=== PATIENT | male | born 1975 | race Caucasian/White ===

== ENCOUNTER 2021-04-19 12:58 | Emergency (ER) | payer BC, SELFPAY ==
[2021-04-19 13:23] VITALS: BP 125/85; PULSE 93; RESP 14; TEMP 36.7; O2SAT 99; BMI 28.2
--- NOTE | 2021-04-19 14:08 | HMH.EDUTC ---
[facility] [place] Dis[place] Clinical Impression: Fever blister Disposition: Home, Self-Care Condition on Discharge: Good Instructions: Cold Sores, DI for Cold Sores Additional Instructions: Use the medication as directed. Take tylenol or ibuprofen for pain If your insurance will not pay for the zovirax ointment then just get the oral medication. The oral medcation will work the best anyway. There will be refills on the oral medication, when you start to feel an out break start the next time, the sooner you start the medication the better it will work. Follow up with your primary care doctor. GO TO THE ER FOR ANY WORSENING SYMPTOMS OR CONCERNS Prescriptions: Acyclovir 400 mg PO TID 10 Days #30 tab Transmission Status: Received by [facility] #[id number] Acyclovir [Zovirax 5% ointment 5gm] 1 applicatio TP 5XDAY #5 gm Transmission Status: Received by [facility] #[id number] Referrals: Provider,Referral, [Primary Care Provider] - Time of Disposition: 14:18 Medical Decision Making - Medical Records Medical records reviewed: No: I reviewed the patient's medical records. - Baldev Inquiry Pt receiving controlled substance: No Vital Signs: 04/19/21 13:23 04/19/21 14:20 Temperature 98.1 F 98.1 F Temperature Source Oral Pulse Rate 93 H Pulse Rate [Left] 93 H Respiratory Rate 14 14 Blood Pressure 125/85 Blood Pressure [Right Arm] 125/85 Blood Pressure Mean [Right Arm] 98 02 Sat by Pulse Oximetry 99 [facility] [place] HPI - General Stated complaint: oral blisters Time Seen by Provider: 04/19/21 14:08 Mode of Arrival: Ambulatory Source of Information: Patient Limitations: No Limitations Description of Symptoms (Recalled from Triage Doc. by RN): pt appears to have fever blisters around his mouth. HEENT Symptoms (Recalled from RN notes): Yes (fever blisters) Resp Symptoms (Recalled from RN notes): No Skin Symptoms (Recalled from RN notes): No MS Symptoms (Recalled from RN notes): No Functional Status (Recalled from RN notes): na - History of Present Illness Provider Complaint: He states that he has a history of getting fever blisters. For the past 1 week he has had worse than his normal fever blister symptoms. He usually only gets one fever blister every so often, but over the past week he has had 4 fever blisters to break out. - Related Data Previous Rx's Medication Instructions Recorded Acyclovir 400 mg PO TID 10 Days #30 tab 04/19/21 Acyclovir [Zovirax 5% ointment 5gm] 1 applicatio TP 5XDAY #5 gm 04/19/21 - Worker's Comp Is this a Worker's Comp case?: No H History - Hepatitis A Screen Drug use history?: No High risk sexual behaviors?: No History of sexually transmitted infection?: No Currently employed?: No Childcare worker?: No Do you have indoor plumbing?: Yes Do you have electricity?: Yes Attestation statement:: This patient has been screened for Hepatitis A risk factors. ROS Obtained: Yes All systems reviewed & no additional complaints - Constitutional Constitutional: Denies chills, Denies fever(s) - Eyes Eyes: Denies eye discharge - ENT Ears, Nose, Mouth, and Throat: Denies dizziness, Denies otalgia, Denies sore throat - Cardiovascular Cardiovascular: Denies chest pain - Respiratory Respiratory: Denies chest congestion, Denies cough, Denies dyspnea, Denies stridor, Denies wheezing Physical Exam - General General appearance: alert, in no apparent distress - Head Head exam: atraumatic, normocephalic, normal inspection - Eye Eye exam: Present: normal appearance, PERRL, EOMI - ENT ENT exam: Present: mucous membranes moist, TM's normal bilaterally, normal external ear exam - Expanded ENT Exam Nasal speculum exam: Bilateral: normal Mouth exam: Present: other (multiple blisters and crusted lesions on his lips) Teeth exam: Present: normal inspection Throat exam: Present: normal inspection - Neck Neck exam: Present: normal inspection, full
[2021-04-19 14:20] VITALS: BP 125/85; PULSE 93; RESP 14; TEMP 36.7
== END 2021-04-19 14:23 | disposition home or self-care (01) ==
PROVIDERS: Emergency Provider Nurse Practitioner Family
DX: B00.1 Herpesviral vesicular dermatitis (principal)
CPT/HCPCS: 99202; G0463

== ENCOUNTER 2021-04-28 10:38 | Emergency (ER) | payer BC, SELFPAY ==
[2021-04-28 11:54] VITALS: BP 110/80; PULSE 114; RESP 16; TEMP 36.6; O2SAT 99; BMI 27.4
--- NOTE | 2021-04-28 12:43 | HMH.EDUTC ---
[facility] [place] Clinical Impression: Facial numbness Altered mental status Qualifiers: Altered mental status type: unspecified Qualified Code(s): R41.82 - Altered mental status, unspecified Hyperlipidemia Qualifiers: Hyperlipidemia type: unspecified Qualified Code(s): E78.5 - Hyperlipidemia, unspecified Disposition: Still a Patient Condition on Discharge: Fair Referrals: Provider,Referral, [Primary Care Provider] - Time of Disposition: 12:51 Medical Decision Making - Medical Records Medical records reviewed: No: I reviewed the patient's medical records. - Baldev Inquiry Pt receiving controlled substance: No Vital Signs: 04/28/21 11:54 Temperature 98 F Temperature Source Oral Pulse Rate [Left] 114 H Respiratory Rate 16 Blood Pressure [Right Arm] 110/80 Blood Pressure Mean [Right Arm] 90 02 Sat by Pulse Oximetry 99 Medical Decision Narrative: He was transferred to the er due to his symptoms of dizziness, facial numbness and the period of confusion. [facility] [place] H[place] - General Stated complaint: face numb and right arm Time Seen by Provider: 04/28/21 12:43 Mode of Arrival: Ambulatory Source of Information: Patient Limitations: No Limitations Description of Symptoms (Recalled from Triage Doc. by RN): pt c/o R hand and R sided facial numbness and tingling. pt started taking a cholesterol med about three mo. ago. HEENT Symptoms (Recalled from RN notes): No Resp Symptoms (Recalled from RN notes): No Skin Symptoms (Recalled from RN notes): No MS Symptoms (Recalled from RN notes): No Functional Status (Recalled from RN notes): wnl - History of Present Illness Provider Complaint: He states that for the past 2 days he has had some concerning symptoms. Yesterday he was dizzy at times and almost fell several times. Today while at work his symptoms returned. At work, he also had a period of time that he was confused and could not perform his job. He states that his job is simple and he never has had symptoms like that. He has a history of having very elevated cholesterol. He was on some medication for his cholesterol, but she stopped it. He has a strong family history of very elevated cholesterol also. - Related Data Previous Rx's Medication Instructions Recorded Acyclovir 400 mg PO TID 10 Days #30 tab 04/19/21 Acyclovir [Zovirax 5% ointment 5gm] 1 applicatio TP 5XDAY #5 gm 04/19/21 - Worker's Comp Is this a Worker's Comp case?: No H History - Hepatitis A Screen Drug use history?: No High risk sexual behaviors?: No History of sexually transmitted infection?: No Currently employed?: No Childcare worker?: No Do you have indoor plumbing?: Yes Do you have electricity?: Yes Attestation statement:: This patient has been screened for Hepatitis A risk factors. I have reviewed the patient's past medical history: Yes ROS Obtained: Yes All systems reviewed & no additional complaints - Constitutional Constitutional: Denies chills, Denies fever(s), Denies poor appetite, Denies malaise - Eyes Eyes: Denies change in vision, Denies eye discharge - ENT Ears, Nose, Mouth, and Throat: Denies dizziness, Denies otalgia, Denies sore throat - Cardiovascular Cardiovascular: Denies chest pain - Respiratory Respiratory: Denies chest congestion, Denies cough, Denies dyspnea, Denies stridor, Denies wheezing - Gastrointestinal Gastrointestingal: Denies: abdominal pain, diarrhea, nausea, vomiting - Musculoskeletal Musculoskeletal: Denies joint pain, Denies back pain, Denies neck pain - Integumentary/Breasts Skin/Breast: Denies rash Physical Exam - General General appearance: alert, in no apparent distress - Head Head exam: atraumatic, normocephalic, normal inspection - Eye Eye exam: Present: normal appearance, PERRL, EOMI - ENT ENT exam: Present: normal exam, normal oropharynx, mucous membranes moist, TM's normal bilaterally, normal external ear exam - Neck Neck exam: Present: no
--- NOTE | 2021-04-28 13:00 | PC.NURSE ---
Received pt from [facility] via w/c for further evaluation r/t face/arm tingling, confusion and dizziness
[2021-04-28 13:01] VITALS: BP 137/91; PULSE 98; RESP 16; TEMP 36.9; O2SAT 97; BMI 21.1
--- NOTE | 2021-04-28 13:12 | CT_ITS ---
PROCEDURE: CT HEAD/BRAIN WO CON CLINICAL INDICATION: dizziness, confusion, rt face/arm tingling COMPARISON: No exams were available for comparison TECHNIQUE: Axial images obtained. All CT scans at the facility use one or more dose reduction, viz: automated exposure control, ma/kV adjustment per patient size (including targeted exams where dose is matched to indication, i.e. head), or iterative reconstruction technique. FINDINGS: No midline shift, mass effect, intracranial hemorrhage, hydrocephalus, or extra-axial fluid collection is evident. The calvarium has an unremarkable appearance. No mastoid effusion. No sinus air-fluid level. IMPRESSION: No acute intracranial finding Dictated by: Galdino Ramírez MD 04/28/2021 14:12 Galdino Ramírez MD in [place] 04/28/2021 14:12
--- NOTE | 2021-04-28 13:12 | XR_ITS ---
PROCEDURE: XR CHEST PORTABLE CLINICAL HISTORY: dizziness, confusion, altered sensation COMPARISON: No exams were available for comparison FINDINGS: The cardiomediastinal silhouette and pulmonary vascularity are within normal limits. The lungs are clear without infiltrates, suspicious nodules, or pleural effusions. No acute bony abnormalities. IMPRESSION: No acute findings. Dictated by: Galdino Ramírez MD 04/28/2021 14:57 Galdino Ramírez MD in [facility] 04/28/2021 14:57
[2021-04-28 13:25] LABS: Basophils # 0.1 K/mm3 (0-0.2); Basophils % 0.8 % (0.1-2.0); Eosinophils # 0.2 K/mm3 (0.0-0.4); Eosinophils % 1.9 % (0.1-12.0); Hematocrit 51.6 % (42.0-52.0); Hemoglobin 17.7 g/dL (14.1-18.0); Lymphocytes # 2.2 K/mm3 (0.7-4.5); Lymphocytes % 19.8 % (10-50); Mean Corpuscular HGB Conc 34.3 g/dL (31.8-35.4); Mean Corpuscular Hemoglobin 31.7 pg (27.0-31.2); Mean Corpuscular Volume 92.4 fl (80-94); Mean Platelet Volume 7.6 fl (7.4-10.4); Monocytes # 0.6 K/mm3 (0.1-1.0); Monocytes % 5.5 % (1.7-9.3); Neutrophils # 7.9 K/mm3 (1.8-7.8); Neutrophils % 71.9 % (37.0-80.0); Platelet Count 444 K/mm3 (142-424); Red Blood Count 5.58 M/mm3 (4.60-6.20); Red Cell Distribution Width 13.3 % (11.5-17.5); White Blood Count 10.9 K/mm3 (4.8-10.8)
[2021-04-28 13:39] LABS: Chloride 97 mmol/L (98-107); Potassium 4.8 mmoL/L (3.5-5.1); Sodium 139 mmol/L (136-145)
[2021-04-28 13:42] LABS: Alanine Aminotransferase 19 U/L (12-78); Albumin Level 4.9 g/dl (3.5-5.0); Albumin/Globulin Ratio 1.5 (1.1-1.8); Alkaline Phosphatase 91 U/L (38-126); Anion Gap 14.8 mEq/L (5-15); Aspartate Amino Transferase 35 U/L (17-59); Bilirubin,Total 0.8 mg/dl (0.2-1.3); Blood Urea Nitrogen 31 mg/dl (9-20); Carbon Dioxide 32 mmol/L (22.0-30.0); Creatinine Clearance Estimated 73 mL/min (50-200); Estimated Glomerular Filt Rate 55 ml/min (>60); GFR (African American) 67 ML/MIN (>60); Globulin 3.3 g/dL (1.3-3.2); Total Protein,Serum 8.2 g/dl (6.3-8.2)
[2021-04-28 13:43] LABS: Glucose 89 mg/dl (74-100)
--- NOTE | 2021-04-28 14:17 | HMH.EDGENADL ---
ED Disposition Clinical Impression: Lightheadedness Disposition: Home, Self-Care Condition on Discharge: Good Additional Instructions: Make sure you eat appropriately and stay well-hydrated. Obtain a PCP in follow-up later this week. Return the emergency department for continued lightheadedness or fall. Referrals: Provider,Referral, [Primary Care Provider] - Time of Disposition: 16:55 - Critical Care Critical Care Time: No Attestation: On 04/28/21, the high probability of a clinically significant, sudden or life threatening deterioration of the following system(s) required my full and direct attention, intervention and personal management. The time I documented below is in addition to time spent performing reported procedures but includes the following listed in this critical care notation. Medical Decision Making - Medical Records Medical records reviewed: Yes: I reviewed the patient's medical records. - Baldev Inquiry Pt receiving controlled substance: No Vital Signs: 04/28/21 11:54 04/28/21 13:01 Temperature 98 F 98.4 F Temperature Source Oral Oral Pulse Rate [Left] 114 H 98 H Respiratory Rate 16 16 Blood Pressure [Right Arm] 110/80 137/91 H Blood Pressure Mean [Right Arm] 90 106 Blood Pressure Source [Right Arm] Automatic Cuff Blood Pressure Position [Right Arm] Sitting 02 Sat by Pulse Oximetry 99 97 Oxygen Delivery Method Room Air - Lab Data Lab results reviewed: Yes: I reviewed the patient's lab results. Lab Results 04/28/21 13:10: WBC 10.9 H, RBC 5.58, Hgb 17.7, Hct 51.6, MCV 92.4, MCH 31.7 H, MCHC 34.3, RDW 13.3, Plt Count 444 H, MPV 7.6, Neut % (Auto) 71.9, Lymph % (Auto) 19.8, [place] % (Auto) 5.5, Eos % (Auto) 1.9, Baso % (Auto) 0.8, Neut # (Auto) 7.9 H, Lymph # (Auto) 2.2, [place] # (Auto) 0.6, Eos # (Auto) 0.2, Baso # (Auto) 0.1 04/28/21 13:10: Sodium 139, Potassium 4.8, Chloride 97 L, Carbon Dioxide 32 H, Anion Gap 14.8, BUN 31 H, Creatinine 1.40 H, Estimated Creat Clear 73, Estimated GFR 55 L, Est GFR ( Amer) 67, Glucose 89, Calcium 11.0 H, Total Bilirubin 0.8, AST 35, ALT 19, Alkaline Phosphatase 91, Total Protein 8.2, Albumin 4.9, Globulin 3.3 H, Albumin/Globulin Ratio 1.5 04/28/21 13:10: Troponin I < 0.01 04/28/21 16:04: Urine Color Yellow, Urine Appearance Clear, Urine pH 5.5, Ur Specific [place] >= 1.030, Urine Protein Negative, Urine Glucose (UA) Negative, Urine Ketones Trace, Urine Blood Negative, Urine Nitrate Negative, Urine Bilirubin Negative, Urine Urobilinogen 0.2, Ur Leukocyte Esterase Negative, Urine RBC Occasional, Urine WBC 3-5, Ur Squamous Epith Cells 3-5, Urine Bacteria 1+ 04/28/21 16:04: Urine Opiates Screen Negative, Urine Methadone Screen Negative, Ur Barbituates Screen Negative, Ur Phencyclidine Scrn Negative, U Benzodiazepines Scrn Negative, Urine Cocaine Screen Negative, U Marijuana (THC) Screen Positive H Result diagrams: 04/28/21 13:10 04/28/21 13:10 Orders (Tests/Meds): ED MEDICATIONS Discontinued Medications Generic Name Dose Route Start Last Admin Trade Name Freq PRN Reason Stop Dose Admin Lactated Ringer's 1,000 mls @ 999 mls/hr 04/28/21 14:30 04/28/21 14:52 Lactated Ringer's 1000 Ml Bag IV 04/28/21 15:30 999 mls/hr .[id number] MERNA Administration ORDERS Category Date Time Status UDS [Drug Screen,Urine] Stat Lab 04/28/21 16:04 Results - CT Data CT Scan: Head Time Received: 14:[address] Reviewed: Yes: I have reviewed the patient's CT results Preliminary Findings: Normal/NAD Medical Decision Narrative: 45yo M evaluated for near syncope. Patient no acute distress on initial evaluation. Patient began his work-up in [facility] and his blood work is benign, pending a troponin and EKG at this time. CT head is benign. Patient's urinalysis shows no sign of infection. He does appear slightly dehydrated. Patient received a liter of fluid in the emergency department. On follow-up discussion with the patient, he reports that his girlfriend i
[2021-04-28 14:49] LABS: Troponin I < 0.01 ng/ml (0.00-0.034)
[2021-04-28 16:18] LABS: Microscopic, Urine URINE MICROSCOPIC (MICROSCOPIC)
[2021-04-28 16:28] LABS: Appearance,Urine CLEAR (Clear); Bilirubin,Urine Negative (Negative); Blood, Urine Negative (Negative); Color,Urine YELLOW (Yellow); Glucose,Urine (UA) Negative (Negative); Ketones,Urine TRACE (Negative); Leukocyte Esterase,Urine Negative (Negative); Nitrate,Urine Negative (Negative); PH,Urine 5.5 (5.0-8.5); Protein,Urine Negative (Negative); Specific Gravity, Urine >= 1.030 (1.005-1.030); Urobilinogen,Urine 0.2 EU/dl (0.2)
[2021-04-28 16:42] LABS: Barbiturates Screen,Urine Negative ng/ml (<200); Benzodiazepines Screen,Urine Negative ng/ml (<200)
[2021-04-28 16:43] LABS: Bacteria,Urine 1+ /lpf; Cannabinoid Screen,Urine Positive ng/ml (<50); RBC,Urine Occasional #/hpf (0-3)
[2021-04-28 16:44] LABS: Cocaine Screen,Urine Negative ng/ml (<300); Methadone Screen,Urine Negative ng/ml (<300)
[2021-04-28 16:45] LABS: Opiate Screen,Urine Negative ng/ml (<300)
[2021-04-28 16:46] LABS: Phencyclidine Screen,Urine Negative ng/ml (<25)
[2021-04-28 16:54] LABS: Amphetamine/Metha Screen,Urine Positive ng/ml (<1000)
[2021-04-28 17:09] VITALS: BP 109/59; PULSE 75; RESP 16; TEMP 36.8; O2SAT 98
== END 2021-04-28 17:10 | disposition home or self-care (01) ==
LOC: UTC 12:51 → ER 13:00
PROVIDERS: Emergency Provider Family Medicine
DX: R42 Dizziness and giddiness (principal); R41.82 Altered mental status, unspecified; F12.10 Cannabis abuse, uncomplicated; I10 Essential (primary) hypertension; E78.5 Hyperlipidemia, unspecified
CPT/HCPCS: 70450; 71045; 80053; 80305; 81001; 84484; 85025; 96365; 99283

== ENCOUNTER 2021-08-30 12:42 | Emergency (ER) | payer SELFPAY ==
[2021-08-30 12:45] VITALS: BP 119/87; PULSE 76; RESP 19; TEMP 36.6; O2SAT 100; BMI 23.2
--- NOTE | 2021-08-30 13:17 | HMH.EDUTC ---
[facility] [place] Clinical Impression: Possible exposure to STD Disposition: Home, Self-Care Condition on Discharge: Good Instructions: Facts About Sexually Transmitted Infections, How to Detect and Treat STDs Additional Instructions: call back on wednesday for test results always use safe sex practices if symptoms worsen or no improvement return Referrals: Provider,Referral, [Primary Care Provider] - Time of Disposition: 13:29 Medical Decision Making - Baldev Inquiry Pt receiving controlled substance: No Vital Signs: 08/30/21 12:45 Temperature 97.9 F Temperature Source Oral Pulse Rate [Right Brachial] 76 Respiratory Rate 19 Blood Pressure [Right Arm] 119/87 Blood Pressure Mean [Right Arm] 97 Blood Pressure Source [Right Arm] Automatic Cuff Blood Pressure Position [Right Arm] Sitting 02 Sat by Pulse Oximetry 100 Oxygen Delivery Method Room Air Orders (Tests/Meds): ED MEDICATIONS Discontinued Medications Generic Name Dose Route Start Last Admin Trade Name Freq PRN Reason Stop Dose Admin Penicillin G Benzathine 2,400,000 unit 08/30/21 13:35 Penicillin G Benzathine 1,200,000 Units/2ml Syringe IM 08/30/21 13:36 ONCE ONE ORDERS Category Date Time Status HSV 1 and 2-Specific Ab, IgG Stat Lab 08/30/21 13:30 Ordered Hepatitis Panel (4) Stat Lab 08/30/21 13:30 Ordered Rapid Plasma Reagin Ab Titer Stat Lab 08/30/21 13:20 Ordered Urine Culture Stat Micro 08/30/21 13:34 Ordered [facility] [place] - General Chief complaint: Urgent Treatment Center Stated complaint: Rash Time Seen by Provider: 08/30/21 13:18 Mode of Arrival: Ambulatory Source of Information: Patient Limitations: No Limitations Description of Symptoms (Recalled from Triage Doc. by RN): PATIENT C/O RASH TO GENITAL AREA. HE REPORTS THE RASH STARTED 4 DAYS AGO AFTER HE HAD SEXUAL INTERCOURSE WITH A FEMALE WHO WAS ON HER PERIOD HEENT Symptoms (Recalled from RN notes): No Resp Symptoms (Recalled from RN notes): No Skin Symptoms (Recalled from RN notes): No MS Symptoms (Recalled from RN notes): No Functional Status (Recalled from RN notes): WNL - History of Present Illness Provider Complaint: 45 yr old male presents for red rash on penis. pt states it started 4 days ago after he had sex with a new partner that was on her period. pt states the girl is being treated for uti but states no std. pt states no discharge or pain only the red bumps. - Related Data Previous Rx's Medication Instructions Recorded Acyclovir 400 mg PO TID 10 Days #30 tab 04/19/21 Acyclovir [Zovirax 5% ointment 5gm] 1 applicatio TP 5XDAY #5 gm 04/19/21 Allergies Allergy/AdvReac Type Severity Reaction Status Date / Time No Known Allergies Allergy Verified 04/28/21 13:12 - Worker's Comp Is this a Worker's Comp case?: No [facility] History - Hepatitis A Screen Drug use history?: No High risk sexual behaviors?: No History of sexually transmitted infection?: No Currently employed?: No Childcare worker?: No Do you have indoor plumbing?: Yes Do you have electricity?: Yes Attestation statement:: This patient has been screened for Hepatitis A risk factors. I have reviewed the patient's past medical history: Yes Medical History: Reports:: Hypertension - Social History Smoking Status: Current every day smoker ROS Obtained: Yes Systems reviewed as appropriate & no additional complaints - Constitutional Constitutional: Reports system reviewed and no additional complaints, except as docu, Denies fever(s) - Eyes Eyes: Reports system reviewed and no additional complaints, except as docu, Denies dry eyes - ENT Ears, Nose, Mouth, and Throat: Reports system reviewed and no additional complaints, except as docu, Denies dizziness - Cardiovascular Cardiovascular: Reports system reviewed and no additional complaints, except as docu, Denies chest pain - Respiratory Respiratory: Reports system reviewed and no additional complaints, except as d
[2021-08-30 13:49] VITALS: BP 119/87; PULSE 76; RESP 19; TEMP 36.6; O2SAT 100
[2021-09-02 04:56] LABS: Hep A Ab, IgM Negative (Negative); Hepatitis B Core Antibody IgM Negative (Negative); Hepatitis B Surface Antigen Negative (Negative); Hepatitis C Antibody 0.1 s/co ratio (0.0-0.9)
[2021-09-02 11:24] LABS: Rapid Plasma Reagin Ab Titer Non Reactive (NonRea<1:1)
[2021-09-02 14:14] LABS: HSV 2 IgG Supplemental Testing Positive (Negative)
[2021-09-02 23:17] LABS: Neisseria gonorrhoeae, NAA Negative (Negative)
== END 2021-08-30 14:03 | disposition home or self-care (01) ==
PROVIDERS: Emergency Provider Nurse Practitioner Family
DX: R21 Rash and other nonspecific skin eruption (principal); I10 Essential (primary) hypertension; B00.9 Herpesviral infection, unspecified; F17.200 Nicotine dependence, unspecified, uncomplicated; Z79.899 Other long term (current) drug therapy; Z11.3 Encounter for screening for infections with a predominantly sexual mode of transmission
CPT/HCPCS: 80074; 86592; 86695; 86790; 87086; 87210; 87491; 87591; 96372; 99213; G0463; J0561

== ENCOUNTER 2022-04-12 17:33 | Emergency (ER) | payer SELFPAY ==
[2022-04-12 17:36] VITALS: BP 154/97; PULSE 110; RESP 16; TEMP 36.8; O2SAT 98; BMI 24.2
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
[2022-04-12 22:18] VITALS: BP 159/97; PULSE 89; RESP 16; TEMP 36.5; O2SAT 98
== END 2022-04-12 20:40 | disposition home or self-care (01) ==
PROVIDERS: Emergency Provider Emergency Medicine; PCP Family Medicine
DX: M25.511 Pain in right shoulder (principal); Y04.8XXA Assault by other bodily force, initial encounter
CPT/HCPCS: 73030; 73060; 73080; 73090; 73110; 99284

== ENCOUNTER 2023-05-23 15:26 | Emergency (ER) | payer MEDICAID, SELFPAY ==
[2023-05-23] VITALS (8 sets, daily range): BP systolic 118–155; BP diastolic 64–96; PULSE 83–103; RESP 18–20; TEMP 36.8; O2SAT 96–99; BMI 21.5
--- NOTE | 2023-05-23 15:45 | CT_ITS ---
PROCEDURE INFORMATION: Exam: CT Abdomen And Pelvis With Contrast Exam date and time: 05/23/2023 4:13 PM Age: 47 years old Clinical indication: Abdominal tenderness; Additional info: Chronic epigastric pain TECHNIQUE: Imaging protocol: Computed tomography of the abdomen and pelvis with contrast. Radiation optimization: All CT scans at this facility use at least one of these dose optimization techniques: automated exposure control; mA and/or kV adjustment per patient size (includes targeted exams where dose is matched to clinical indication); or iterative reconstruction. Contrast material: ISOVUE; Contrast volume: 75 ml; Contrast route: IV; REPORTING DATA: Count of CT and Cardiac NM exams in prior 12 months: This patient has received 0 known CTs and 0 known cardiac nuclear medicine studies in the 12 months prior to the current study. COMPARISON: CR XR CHEST PORTABLE 04/28/2021 1:41 PM FINDINGS: Lungs: Lung bases are clear. Liver: Normal. No mass. Gallbladder and bile ducts: Normal. No calcified stones. No ductal dilation. Pancreas: Normal. No ductal dilation. Spleen: Normal. No splenomegaly. Adrenal glands: Normal. No mass. Kidneys and ureters: Normal. No hydronephrosis. Stomach and bowel: Unremarkable. No obstruction. No mucosal thickening. Appendix: No evidence of appendicitis. Intraperitoneal space: Unremarkable. No free air. No significant fluid collection. Vasculature: Unremarkable. No abdominal aortic aneurysm. Lymph nodes: Unremarkable. No enlarged lymph nodes. Urinary bladder: Unremarkable as visualized. Reproductive: Unremarkable as visualized. Bones/joints: Unremarkable. No acute fracture. Soft tissues: Unremarkable. IMPRESSION: No acute findings.
--- NOTE | 2023-05-23 15:45 | CT_ITS ---
PROCEDURE INFORMATION: Exam: CT Head Without Contrast Exam date and time: 05/23/2023 4:07 PM Age: 47 years old Clinical indication: Injury or trauma; Fall; Blunt trauma (contusions or hematomas); Consciousness not specified; Injury date: Last night; Injury details: PT was dizzy and passed out hitting the back of his head; Additional info: Fall posterior w loc TECHNIQUE: Imaging protocol: Computed tomography of the head without contrast. Radiation optimization: All CT scans at this facility use at least one of these dose optimization techniques: automated exposure control; mA and/or kV adjustment per patient size (includes targeted exams where dose is matched to clinical indication); or iterative reconstruction. REPORTING DATA: Count of CT and Cardiac NM exams in prior 12 months: This patient has received 0 known CTs and 0 known cardiac nuclear medicine studies in the 12 months prior to the current study. COMPARISON: CT HEAD/BRAIN WO CON 04/28/2021 1:32 PM FINDINGS: Brain: No evidence for acute transcortical infarct. No mass effect or midline shift. No extra-axial collection. No acute intracranial hemorrhage. Basal cisterns are patent. Cerebral ventricles: No ventriculomegaly. Paranasal sinuses: Visualized sinuses are unremarkable. No fluid levels. Mastoid air cells: Visualized mastoid air cells are well aerated. Bones/joints: Unremarkable. No acute fracture. Soft tissues: Unremarkable. IMPRESSION: No evidence for acute transcortical infarct, acute intracranial hemorrhage, or mass effect.
--- NOTE | 2023-05-23 15:47 | HMH.EDGENADL ---
Discharge Plan Disposition Patient Disposition: Home, Self-Care Chief Complaint: Syncope Prescriptions Prescriptions: No Action methocarbamol 750 mg tablet 750 mg PO Q8H PRN (Reason: pain) Qty: 20 0RF acyclovir 400 MG tablet 400 mg PO TID 10 Days Qty: 30 2RF acyclovir 5 GM ointment 1 applicatio TP 5XDAY Qty: 5 0RF Referrals Follow up/Referrals: Henrique Carlin DO [Primary Care Provider] - See instructions Activity Restrictions/Add. Instructions Additional Instructions/Restrictions: At this time it was felt you are safe to be discharged home. If new or worsening symptoms please do not hesitate to return the emergency department. Please call Dr. Carlin and schedule an appointment as soon as you are able. If you wish to be seen by experimental mechanic electrical please contact Dr. Immanuel Montelongo with gastroenterology and hepatology of the [facility] at [phone] to schedule an appointment. Clinical Impressions Clinical Impression: Syncope, vasovagal, Abdominal pain, epigastric Instructions Patient Instructions: DI for Syncope in Adults (Fainting), DI for Syncope in Children (Fainting) Discharge ED Provider: Johnie Huitron General Adult HPI General Chief complaint: Syncope Stated complaint: AO12/13Fall hit head, fainted HBP ESTES Time Seen by Provider: 05/23/23 15:35 History of Present Illness HPI narrative: Patient is a 47-year-old male with past medical history of previous blood pressure problems who presents emergency department for evaluation of multiple complaints. Patient states that originally he had hypertension for which he was on medications which were subsequently discontinued, he developed hypotension which was on a subsequent medication to raise his blood pressure however when he got out of correction he self discontinued this medication. Since then patient has had episodes where when he rises from a seated position, rises from bed he becomes extremely lightheaded with falls and yesterday had a fall posterior striking his head with positive loss of consciousness. He also has chronic epigastric pain that is sometimes daily sometimes weekly, moderate to persistent, twisting and stabbing in nature. This is associated with vomiting which is relieved by marijuana use. No other acute complaints at this time. Related Data Previous Rx's Medication Instructions Recorded acyclovir 400 mg tablet 400 mg PO TID 10 days #30 tabs 04/19/21 acyclovir 5 % topical ointment 1 applicatio TP 5XDAY ##5 04/19/21 methocarbamol 750 mg tablet 750 mg PO Q8H PRN pain #20 tabs 04/12/22 Allergies Allergy/AdvReac Type Severity Reaction Status Date / Time No Known Allergies Allergy Verified 04/28/21 13:12 [facility] Disclaimer: The information contained in this section may have been updated after the patient was seen, as this information can be updated by other users. Social History (Updated 04/12/22 @ 20:36 by Vivienne Schneider DO) Smoking Status: Current every day smoker alcohol intake: current current occupational status: employed Travel in the last 8 weeks: None ROS Obtained: Yes Systems reviewed as appropriate & no additional complaints except as documented Physical Exam General General appearance: alert and in no apparent distress Head Head exam: atraumatic and normocephalic Eye Eye exam: Present PERRL and EOMI ENT ENT exam: Present mucous membranes moist Neck Neck exam: Present normal inspection Chest Chest inspection: Present normal inspection and symmetric chest wall rise Respiratory Respiratory exam: Present normal lung sounds bilaterally; Absent respiratory distress Cardiovascular Cardiovascular exam: Present regular rate and normal rhythm Abdominal Exam Abdominal exam: Present soft and tenderness (Mild, epigastric) Extremities Exam Extremities exam: Present normal inspection Neurological Exam Neurological exam: Present alert and CN II-XII intact; Absent motor sensory deficit Psychiatric Psych
--- NOTE | 2023-05-23 15:57 | ECG_ITS ---
APPROVED REPORT Exam: Resting ECG HR:85 bpm ECG Measurements Heart Rate 85 AXES MO 155 P 75 QRSd 97 QRS 87 QT 339 T 72 QTc 381 Conclusion SINUS RHYTHM NORMAL ECG UNCONFIRMED REPORT Electronically signed by : Real Child MD 05/26/2023 09:05:52
--- NOTE | 2023-05-23 16:05 | PC.NURSE ---
Pt gone to RAD via wheelchair
[2023-05-23 16:09] LABS: Alanine Aminotransferase 62 U/L (12-78); Albumin Level 4.3 g/dl (3.5-5.0); Albumin/Globulin Ratio 1.5 (1.1-1.8); Alkaline Phosphatase 77 U/L (38-126); Anion Gap 10.8 mEq/L (5-15); Aspartate Amino Transferase 46 U/L (17-59); Bilirubin,Total 0.4 mg/dl (0.2-1.3); Blood Urea Nitrogen 14 mg/dl (9-20); Calcium 8.8 mg/dl (8.4-10.2); Carbon Dioxide 26 mmol/L (22.0-30.0); Chloride 102 mmol/L (98-107); Creatinine Clearance Estimated 127 mL/min (50-200); Estimated Glomerular Filt Rate 121 ml/min (>60); GFR (African American) 147 ML/MIN (>60); Globulin 2.8 g/dL (1.3-3.2); Glucose 135 mg/dl (74-100); Lipase 29 U/L (23-300); Potassium 3.8 mmoL/L (3.5-5.1); Sodium 135 mmol/L (136-145); Total Protein,Serum 7.1 g/dl (6.3-8.2)
--- NOTE | 2023-05-23 16:17 | PC.NURSE ---
pt arrived back to room from ct
[2023-05-23 16:19] LABS: Basophils # 0.1 K/mm3 (0-0.2); Basophils % 0.7 % (0.1-2.0); Eosinophils # 0.4 K/mm3 (0.0-0.4); Eosinophils % 3.3 % (0.1-12.0); Hematocrit 41.7 % (42.0-52.0); Hemoglobin 13.9 g/dL (14.1-18.0); Lymphocytes % 18.7 % (10-50); Mean Corpuscular HGB Conc 33.4 g/dL (31.8-35.4); Mean Corpuscular Hemoglobin 31.1 pg (27.0-31.2); Mean Corpuscular Volume 93.1 fl (80-94); Mean Platelet Volume 7.8 fl (7.4-10.4); Monocytes # 0.6 K/mm3 (0.1-1.0); Monocytes % 5.8 % (1.7-9.3); Neutrophils # 7.6 K/mm3 (1.8-7.8); Neutrophils % 71.5 % (37.0-80.0); Platelet Count 295 K/mm3 (142-424); Red Blood Count 4.48 M/mm3 (4.60-6.20); White Blood Count 10.7 K/mm3 (4.8-10.8)
[2023-05-23 16:22] LABS: Troponin I < 0.01 ng/ml (0.00-0.034)
[2023-05-23 16:25] LABS: Magnesium 1.7 mg/dl (1.6-2.3)
[2023-05-23 16:40] LABS: Thyroid Stimulating Hormone 1.23 uIU/mL (0.465-4.68)
== END 2023-05-23 17:29 | disposition home or self-care (01) ==
PROVIDERS: Emergency Provider Emergency Medicine; PCP Internal Medicine
DX: S06.9X9A Unspecified intracranial injury with loss of consciousness of unspecified duration, initial encounter (principal); R55 Syncope and collapse; R10.13 Epigastric pain; F17.200 Nicotine dependence, unspecified, uncomplicated; W19.XXXA Unspecified fall, initial encounter
CPT/HCPCS: 70450; 74177; 80053; 83690; 83735; 84443; 84484; 85025; 93005; 99285; Q9967

== ENCOUNTER 2023-10-01 00:06 | Emergency (ER) | payer MEDICAID, SELFPAY ==
[2023-10-01 00:08] VITALS: BP 160/99; PULSE 102; RESP 16; TEMP 36.6; O2SAT 99; BMI 25.8
[2023-10-01] MEDS: IBUPROFEN 400 MG TABLET 800 MG PO (00:55)
[2023-10-01] MEDS: ACETAMINOPHEN 500MG TAB 1000 MG PO (00:55)
[2023-10-01] MEDS: OXYCODONE 5MG IMMEDIATE RELEASE TABLET 5 MG PO (00:55)
[2023-10-01] MEDS: LIDOCAINE 1% 10ML MDV 5 ML IJ (00:56)
[2023-10-01] MEDS: BUPIVACAINE 0.5% 30ML VIAL 15 MG IJ (00:56)
[2023-10-01] MEDS: ONDANSETRON 4MG ODT 4 MG SL (00:56)
[2023-10-01] MEDS: TETRACAINE/BENZOCAINE/BUTAMBEN 56 GM SPRAY TP (00:59)
[2023-10-01] MEDS: LIDOCAINE 2% VISCOUS SOL 15ML UDC 15 ML PO (00:59)
--- NOTE | 2023-10-01 01:01 | HMH.EDGENADL ---
Discharge Plan Disposition Patient Disposition: Home, Self-Care Condition: Good Prescriptions Prescriptions: New amoxicillin-pot clavulanate 875-125 mg tablet 1 tab PO BID Qty: 20 0RF oxycodone 5 mg tablet 5 mg PO Q8H PRN (Reason: pain) Qty: 8 0RF naproxen 500 mg tablet 500 mg PO Q12H PRN (Reason: pain) Qty: 20 0RF chlorhexidine gluconate [Peridex] 0.12 % mouthwash 15 ml buccal BID Qty: 118 0RF ondansetron 4 mg tablet,disintegrating 4 mg PO Q8H PRN (Reason: nausea and vomiting) 4 Days Qty: 12 0RF No Action methocarbamol 750 mg tablet 750 mg PO Q8H PRN (Reason: pain) Qty: 20 0RF acyclovir 400 MG tablet 400 mg PO TID 10 Days Qty: 30 2RF acyclovir 5 GM ointment 1 applicatio TP 5XDAY Qty: 5 0RF Referrals Follow up/Referrals: Henrique Carlin DO [Primary Care Provider] - See instructions Activity Restrictions/Add. Instructions Additional Instructions/Restrictions: You were evaluated in the emergency department today. Please follow-up outpatient with a dentist as soon as possible to have your tooth evaluated. 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 Take the pain medications provided to you at home as needed for severe pain. Do not drive or operate heavy machinery while taking narcotic pain medication. You may also take Tylenol in addition to these medications every 4-6 hours as needed for pain. Return to the emergency department for new or worsening symptoms. Clinical Impressions Clinical Impression: Periapical abscess, Pain, dental Stand Alone Forms Stand Alone Forms: Work/School Release Instructions Patient Instructions: Tooth Abscess, DI for Dental Pain Discharge ED Provider: Vivienne Schneider General Adult HPI General Chief complaint: Dental/Oral Stated complaint: pain in tooth and jaw left side Time Seen by Provider: 10/01/23 00:26 Mode of Arrival: Ambulatory Source of Information: Patient Limitations: No Limitations Description of Symptoms (Recalled from ER Triage Doc. by RN): pt c/o Lt lower tooth pain that started 2 days agp History of Present Illness HPI narrative: This patient is a 47-year-old male presenting to the emergency department with concern for left lower tooth pain that started 2 days ago. He notes that he has an injury to that left lower tooth, and his family had fallen out. His dentist is supposed to remove it, but he started having some swelling and pain to his left lower jaw so he did not go to his dentist appointment where he was supposed to have it removed. He states he is here that they would not do it since it was acutely swollen. The swelling has gotten worse, prompting him to come in today. No other concerns, such as fevers, chills, chest pain, shortness of breath, or other issues. Related Data Previous Rx's Medication Instructions Recorded acyclovir 400 mg tablet 400 mg PO TID 10 days #30 tabs 04/19/21 acyclovir 5 % topical ointment 1 applicatio TP 5XDAY ##5 04/19/21 methocarbamol 750 mg tablet 750 mg PO Q8H PRN pain #20 tabs 04/12/22 amoxicillin 875 mg-potassium 1 tab PO BID #20 tabs 10/01/23 clavulanate 125 mg tablet chlorhexidine gluconate 0.12 % 15 ml buccal BID #118 mL 10/01/23 mouthwash (Peridex) naproxen 500 mg tablet 500 mg PO Q12H PRN pain #20 tabs 10/01/23 ondansetron 4 mg disintegrating 4 mg PO Q8H PRN nausea and 10/01/23 tablet vomiting 4 days #12 tabs oxycodone 5 mg tablet 5 mg PO Q8H PRN pain #8 tabs 10/01/23 Allergies Allergy/AdvReac Type Severity Reaction Status Date / Time No Known Allergies Allergy Verified 04/28/21 13:12 [facility] Disclaimer: The information contained in this section may have been updated after the patient was seen, as this information can be updated by other users. Social History Smoking Status: Heavy tobacco smoker alcohol intake: current current occupational status: employed Travel in the last 8 weeks: None ROS Obtained: Yes All systems reviewed & no additional complaints except as documented Physical Exam General General appearance: alert and in no apparent distress Head Head exam: atraumatic and normocephalic Eye Eye exam: Present normal appearance, PERRL and EOMI ENT ENT exam: Present mucous membranes moist and normal external ear exam; Absent normal oropharynx Expanded ENT Exam Mouth exam: Present tongue normal; Absent drooling, trismus, lip swelling, tongue elevation or tongue swelling Teeth exam: Present dental caries, fractured tooth # (18) and dental tenderness # (18) Teeth numbered Image: 1. Fractured 2. Other (Large periapical abscess) Throat exam: Present normal inspection; Absent tonsillar erythema, tonsillomegaly, tonsillar exudate, R peritonsillar mass, L peritonsillar mass or muffled voice Neck Neck exam: Present normal inspection, full ROM and trachea midline; Absent tenderness Chest Chest inspection: Present normal inspection and symmetric chest wall rise; Absent tenderness Respiratory Respiratory exam: Present normal lung sounds bilaterally; Absent respiratory distress, wheezes, stridor or accessory muscle use Cardiovascular Cardiovascular exam: Present regular rate and normal rhythm Abdominal Exam Abdominal exam: Present soft; Absent distention, tenderness or guarding Extremities Exam Extremities exam: Present normal inspection, full ROM and normal capillary refill; Absent tenderness or edema Back Exam Back exam: Present normal inspection and full ROM; Absent tenderness Neurological Exam Neurological exam: Present alert, oriented X3, CN II-XII intact and normal gait; Absent motor sensory deficit Psychiatric Psychiatric exam: Present normal affect and normal mood Skin Skin exam: Present warm and dry Medical Decision Making Medical Records Medical records reviewed: Yes I reviewed the patient's medical records. Baldev Inquiry Pt receiving controlled substance: Yes Baldev was queried for this patient: Yes Risks and benefits of using a controlled substance: were discussed with pt by me Vital Signs: 10/01/23 00:08 Temperature 97.9 F Temperature Source Oral Pulse Rate [Right] 102 H Respiratory Rate 16 Blood Pressure [Right Arm] 160/99 H Blood Pressure Mean [Right Arm] 119 02 Sat by Pulse Oximetry 99 Lab Data Lab results reviewed: Yes I reviewed the patient's lab results. Orders (Tests/Meds): ED MEDICATIONS Discontinued Medications Generic Name Dose Route Start Last Admin Trade Name Freq PRN Reason Stop Dose Admin Acetaminophen 1,000 mg 10/01/23 00:46 10/01/23 00:55 Acetaminophen 500mg Tab PO 10/01/23 00:47 1,000 mg ONCE ONE Administration Amoxicillin/Clavulanate Potassium 1 each 10/01/23 01:35 Amoxicillin/Clavulanate Potassium 875/125mg Tablet PO 10/01/23 01:36 ONCE ONE Benzocaine/Butamben/Tetracaine HCl 1 gm 10/01/23 00:46 10/01/23 00:59 Tetracaine/Benzocaine/Butamben 56 Gm [place] TP 10/01/23 00:47 1 gm ONCE ONE Administration Bupivacaine HCl 1 mg 10/01/23 00:50 10/01/23 00:57 Bupivacaine 0.5% 10ml Vial IJ 10/01/23 00:51 Not Given ONCE ONE Bupivacaine HCl 15 mg 10/01/23 00:53 10/01/23 00:56 Bupivacaine 0.5% 30ml Vial IJ 10/01/23 00:54 15 mg ONCE ONE Administration Ibuprofen 800 mg 10/01/23 00:46 10/01/23 00:55 Ibuprofen 400 Mg Tablet PO 10/01/23 00:47 800 mg ONCE ONE Administration Lidocaine HCl 15 ml 10/01/23 00:46 10/01/23 00:59 Lidocaine 2% Viscous Haley 15ml Udc PO 10/01/23 00:47 15 ml ONCE ONE Administration Lidocaine HCl 5 ml 10/01/23 00:46 10/01/23 00:57 Lidocaine 1% 5ml Pf Vial IJ 10/01/23 00:47 Not Given ONCE ONE Lidocaine HCl 5 ml 10/01/23 00:53 10/01/23 00:56 Lidocaine 1% 10ml Mdv IJ 10/01/23 00:54 5 ml ONCE ONE Administration Ondansetron HCl 4 mg 10/01/23 00:50 10/01/23 00:56 Ondansetron 4mg Odt SL 10/01/23 00:51 4 mg ONCE ONE Administration Oxycodone HCl 5 mg 10/01/23 00:50 10/01/23 00:55 Oxycodone 5mg Immediate Release Tablet PO 10/01/23 00:51 5 mg ONCE ONE Administration Medical Decision Narrative: In summary, this patient is a 47-year-old male presenting to the Emergency Department for evaluation of left lower jaw/gum swelling and dental pain. Differential diagnoses considered include but are not limited to dental fracture, dental caries, periapical abscess, periodontal abscess, gingival abscess. Ruling out the most morbid conditions drove assessment. On exam, the patient is a very large obvious periapical abscess at tooth 18 with no significant drooling, trismus, sublingual swelling, or other concerns. No significant facial swelling which would indicate need for imaging, though I did consider obtaining CT scan of the face with IV contrast to further assess. I considered obtaining basic lab evaluation, however the patient is well-appearing on exam without systemic symptoms, so I do not feel that this is indicated. Ultimately, I had a long discussion with the patient regarding risk versus benefit of abscess drainage in the emergency department, as I advised that this abscess is unlikely to go away with antibiotics alone. I advised that he is welcome to follow-up outpatient with his dentist to have it drained if he would prefer, however I can also drain here in the emergency department given that it is superficial and easy to access. He elected to proceed with drainage here after explanation of the risk versus benefit. He also consented to dental block, which was performed with bupivacaine 0.5% (1.5 mL) as well as lidocaine 2% with epinephrine (0.5 mL). Oral medications for pain included oral oxycodone, Tylenol, ibuprofen, as well as Zofran to avoid nausea. Patient tolerated the procedure well with very good anesthesia achieved. Incision and drainage was performed of the periapical abscess without difficulty. Purulent material was expressed without significant bleeding. Please see procedure notes for further documentation. No complications noted with either procedure. Patient was given oral Augmentin to treat for infection. At this time, he was deemed to be appropriate for discharge with very close outpatient follow-up with dentistry. He was provided with prescriptions for oxycodone, Zofran, naproxen, Augmentin, and Peridex oral rinses. He was also discharged home with lidocaine dental balls. Patient was discharged with very strict return precautions and plan for close outpatient follow-up. Procedures Risk/Benefits of Procedure(s) Were Explained: Yes Nerve Block Nerve Block 1: Time out performed: Yes Local Anesthetic: lidocaine 2%, bupivacaine 0.5% and with epi Amount of anesthesia used (mL): 2 Side: Left Intraoral Nerve Block: inferior alveolar Procedure Successful: Yes Patient Tolerated Procedure: well and no complications Complications: none Abscess I/D Site: oral Side (if applicable): left Sedation/analgesia: none Local Anesthetic: lidocaine 1%, bupivacaine 0.5% and with epi Technique: incised with #11 blade Amount of fluid expressed (mL): 3 Irrigation: Yes Packing used?: none Complications: other (no complications) Critical Care Critical Care Time Critical Care Time: No
[2023-10-01] MEDS: AMOXICILLIN/CLAVULANATE POTASSIUM 875/125MG TABLET 1 EACH PO (01:55)
[2023-10-01 02:02] VITALS: BP 140/91; PULSE 86; RESP 18; TEMP 36.6; O2SAT 96
== END 2023-10-01 02:03 | disposition home or self-care (01) ==
PROVIDERS: Emergency Provider Emergency Medicine; PCP Internal Medicine
DX: K04.7 Periapical abscess without sinus (principal); K08.89 Other specified disorders of teeth and supporting structures
CPT/HCPCS: 99283